=== PATIENT | female | born 1960 | race Caucasian/White ===

== ENCOUNTER 2016-11-29 07:02 | Emergency (ER) | payer OTHER ==
[2016-11-29] MEDS ORDERED: LAMOTRIGINE150 M1 PO (07:08)
[2016-11-29] MEDS ORDERED: TRAZODONE HCL50 M1 PO (07:09)
[2016-11-29] MEDS ORDERED: PAROXETINE HCL20 M1 PO (07:09)
--- NOTE | 2016-11-29 07:20 | ED GENERAL ADULT ---
History of Present Illness General Chief Complaint: General Adult Stated Complaint: BODY ACHES Source: patient, old records Exam Limitations: no limitations Vital Signs & Intake/Output Vital Signs & Intake/Output Vital Signs Date Time Temp Pulse Resp B/P Pulse O2 O2 Flow FiO2 Ox Delivery Rate 11/29 0707 97.6 90 22 131/66 98 Allergies Coded Allergies: NO KNOWN ALLERGIES (11/29/16) Reconcile Medications Lamotrigine 150 MG TABLET 1 TAB PO DAILY ANXIETY (Reported) Paroxetine HCl 20 MG TABLET 1 TAB PO DAILY ANXIETY (Reported) Trazodone HCl 50 MG TABLET 1 TAB PO QPM SLEEP (Reported) Triage Note: PER PT NOT FEELING WELL X 6 WEEKS ? KIDNEY INFECTION. BODY ACHES ONLY VOIDED X 2 IN 2 DAYS NO FEVERS. Triage Nurses Notes Reviewed? yes HPI: Patient presents with chills, malaise, fatigue and myalgias over the past week. Patient states that it started approximately 6 weeks ago when she noticed that she was very tired. Patient states that she had been taking naps every afternoon which is very unusual for her. 3 weeks ago patient noticed that she had a tick in her abdominal wall. Patient is unsure how long the tick In there prior to her pulling it out. Patient states that 3 days later she had what looked like bull's-eye rash around the inside portion of her right ankle. One week ago she developed debilitating myalgias to the point that she states that she did not even want to get out of bed. Patient states that she has been anorexic but has not had any nausea or vomiting. There is no abdominal pain. There is no diarrhea. Patient states that she feels dehydrated that she has had decreased urinary output. Patient states that she only urinated twice yesterday and once this morning. She did not notice any foul odor to the urine. Patient denies any headache or blurry vision. There's been no cough. Patient states that she has a scratchy throat. She says it does not really hurt just feels scratchy when she swallows. She states that she is able to swallow without difficulty. She denies any chest pain or shortness of breath. There is no dyspnea on exertion. There is no neck stiffness. Past History Travel History Traveled to [place] past 21 day No Medical History Any Pertinent Medical History? see below for history Neurological: NONE EENT: NONE Cardiovascular: NONE Respiratory: NONE Gastrointestinal: NONE Hepatic: NONE Renal: NONE Musculoskeletal: fibromyalgia Psychiatric: anxiety Endocrine: NONE Surgical History Surgical History: non-contributory Psychosocial History What is your primary language Emir[place] Tobacco Use: Never used ETOH Use: occasional use Illicit Drug Use: denies illicit drug use Family History Hx Contributory? No Review of Systems Review of Systems Constitutional: Reports: see HPI, chills, malaise. EENTM: Reports: see HPI, throat pain. Respiratory: Reports: no symptoms. Cardiovascular: Reports: no symptoms. GI: Reports: no symptoms. Genitourinary: Reports: see HPI. Musculoskeletal: Reports: see HPI, muscle pain. Skin: Reports: see HPI. Neurological/Psychological: Reports: no symptoms. Hematologic/Endocrine: Reports: no symptoms. Immunologic/Allergic: Reports: no symptoms. All Other Systems: Reviewed and Negative Physical Exam Physical Exam General Appearance: well developed/nourished, alert, awake, anxious, mild distress Head: atraumatic, normal appearance Eyes: Bilateral: PERRL, EOMI. Ears, Nose, Throat: normal pharynx, normal ENT inspection, NO ERYTHEMA, NO TONSILAR EXUDATES OR SWELLING Neck: normal inspection, supple, full range of motion, NO LAD Respiratory: normal breath sounds, chest non-tender, no respiratory distress, lungs clear Cardiovascular: regular rate/rhythm, normal peripheral pulses Gastrointestinal: normal bowel sounds, soft, non-tender, no organomegaly Back: normal inspection, normal range of motion, NO CVA TENDERNESS. NO VETEBRAL TENDERNESS Extremities: normal inspection, normal capillary refill, normal range of motion, no edema Neurologic/Psych: no motor/sensory deficits, awake, alert, oriented x 3, normal gait, normal mood/affect Skin: intact, normal color, warm/dry Lymphatic: no anterior cervical maria isabel Core Measures ACS in differential dx? No CVA/TIA Diagnosis: No Severe Sepsis Present: No Septic Shock Present: No Progress Differential Diagnoses I considered the following diagnoses in my evaluation of the patient: [Tickborne illness, viral syndrome, pyelonephritis, dehydration, electrolyte abnormality] Plan of Care: Orders Procedure Date/time Status URINALYSIS 11/30 719 Active THYROID STIMULATING HORMONE 11/30 719 Complete LYME TITRE 11/30 719 Active COMPREHENSIVE METABOLIC PANEL 11/30 719 Complete CBC WITHOUT DIFFERENTIAL 11/30 719 Complete ANAPLASMA PHAGOCYTOPHILUM DNA 11/30 719 Active Laboratory Tests 11/29/16730: Lyme Disease Antibody Pending 11/29/16730: Anion Gap 12, Estimated GFR > 60, BUN/Creatinine Ratio 20.0, Glucose 148 H, Calcium 9.5, Total Bilirubin 1.0, AST 16, ALT 31, Alkaline Phosphatase 67, Total Protein 6.8, Albumin 4.0, Globulin 2.8, Albumin/Globulin Ratio 1.4, TSH 1.210, A.phagocytophil DNA PCR Pending 11/29/16719: CBC w Diff NO MAN DIFF REQ, RBC 4.29, MCV 90.8, MCH 31.1 H, RDW 14.1, MPV 7.8, Gran % 82.7 H, Lymphocytes % 11.0 L, Monocytes % 5.6, Eosinophils % 0.4, Basophils % 0.3, Absolute Granulocytes 7.5 H, Absolute Lymphocytes 1.0 L, Absolute Monocytes 0.5, Absolute Eosinophils 0, Absolute Basophils 0, PUBS MCHC 34.2 Initial ED EKG: none Comments: Discussed the pros and cons of treating for presumed Lyme disease with the patient. Patient will start treatment with doxycycline twice a day for 3 weeks. Patient advised SUN SENSITIVITY SECONDARY TO DOXYCYCLINE. Departure Departure Disposition: HOME OR SELF CARE Condition: Stable Clinical Impression Primary Impression: Lyme disease Referrals: MJ MONTOYA,FRANK Mccabe (PCP/Family) Additional Instructions: Take the doxycycline as prescribed. Wear sunscreen and like perhaps every time you go outside. Symptoms worsen or for any concerns. Departure Forms: Customer Survey General Discharge Information Prescriptions: Current Visit Scripts Doxycycline Hyclate 1 CAP PO BID #[id number] CAP Critical Care Note Critical Care Note Critical Care Time: non-applicable
[2016-11-29 07:57] LABS: ABSOLUTE BASOPHIL COUNT 0 /CUMM (0.0-0.2); ABSOLUTE EOSINOPHIL COUNT 0 /CUMM (0.0-0.7); ABSOLUTE GRANULOCYTE CT 7.5 /CUMM (1.4-6.5); ABSOLUTE MONOCYTE COUNT 0.5 /CUMM (0.10-0.60); BASOPHIL % 0.3 % (0.0-2.0); EOSINOPHIL % 0.4 % (0-5); GRANULOCYTE % 82.7 % (42.2-75.2); MEAN CORPUSCULAR HGB 31.1 PG (27.0-31.0); MEAN CORPUSCULAR HGB CONC 34.2 G/DL (33.0-37.0); MEAN CORPUSCULAR VOLUME 90.8 FL (81.0-99.0); MEAN PLATELET VOLUME 7.8 FL (7.4-10.4); PLATELET COUNT 245 /CUMM (130-400); RBC DISTRIBUTION WIDTH 14.1 % (11.5-14.5); RED BLOOD CELL CT 4.29 /CUMM (4.20-5.40)
[2016-11-29] MEDS ORDERED: DOXYCYCLINE HY100 M2 PO (09:17)
[2016-11-29 09:19] VITALS: BP 112/62
== END 2016-11-29 09:25 ==
LOC: ERH 07:02
PROVIDERS: Emergency Medicine
DX: A69.20 Lyme disease, unspecified (principal); R53.83 Other fatigue
CPT/HCPCS: 86618; 87798; 96374; 96375; J0131; J1885

== ENCOUNTER 2017-12-22 20:48 | Emergency (ER) | payer OTHER ==
[~2017-12-22] VITALS: Ht 154.9 cm; Wt 88.5 kg
[~2017-12-22 20:48] MED LIST: DOXYCYCLINE HY100 M2 PO; LAMOTRIGINE150 M1 PO; PAROXETINE HCL20 M1 PO; TRAZODONE HCL50 M1 PO
[2017-12-22 20:55] VITALS: BP 130/88
--- NOTE | 2017-12-22 21:24 | ED UPPER/LOWER EXTREMITY COMPL ---
History of Present Illness General Chief Complaint: General Adult Stated Complaint: ?BLOODCLOT IN R LEG Source: patient Exam Limitations: no limitations Vital Signs & Intake/Output Vital Signs & Intake/Output Vital Signs Date Time Temp Pulse Resp B/P B/P Pulse O2 O2 Flow FiO2 Mean Ox Delivery Rate 12/22 2054 98.1 85 16 130/88 97 Room Air Allergies Coded Allergies: NO KNOWN ALLERGIES (11/29/16) Reconcile Medications Cyclobenzaprine HCl 10 MG TABLET 1 TAB PO QPM PRN muscle strain Doxycycline Hyclate 100 MG CAPSULE 1 CAP PO BID LYME DISEASE Lamotrigine 150 MG TABLET 1 TAB PO DAILY ANXIETY (Reported) Meloxicam (Mobic) 15 MG TABLET 1 TAB PO DAILY PRN pain Paroxetine HCl 20 MG TABLET 1 TAB PO DAILY ANXIETY (Reported) Trazodone HCl 50 MG TABLET 1 TAB PO QPM SLEEP (Reported) Triage Note: PT STATES THAT SHE THINKS SHE HAS A CLOT IN THE BACK OF HER RIGHT LEG. PT STATES THAT THIS STARTED 2 MONTHS AGO PT STATES SHE THOUGHT IT WAS A PINCHED NERVE. PT STATES SHE CANT BEND HER KNEE. PT STATES HER LEG THROBES LIKE A TOOTH ACHE. THE PAIN IS A 9/10 Triage Nurses Notes Reviewed? yes Onset: Gradual Duration: week(s): Timing: recent history Severity: severe Severity Numbers: 9 Pain/Injury Location: Right: Leg, Knee. HPI: 57yo female presents to ED complaining of pain in right leg x 2 months. Patient is concerned that she might have a blood clot in her leg. Patient reports pain in his posterior right knee 2 months. Patient also has throbbing pain to posterior thigh and calf described as 9/10, "toothache like pain". Patient states that her symptoms have been gradually worsening since onset 2 months ago. Patient states she can hardly go to work and stand due to her pain. She had no trauma or inciting event prior to onset of symptoms. She denies numbness, tingling, back pain, bruising, swelling, recent travel. (Jane FRANZ,Kimmy Mares) Past History Travel History Traveled to [place] past 21 day No Medical History Any Pertinent Medical History? see below for history Neurological: NONE EENT: NONE Cardiovascular: NONE Respiratory: NONE Gastrointestinal: NONE Hepatic: NONE Renal: NONE Musculoskeletal: fibromyalgia Psychiatric: anxiety Endocrine: NONE Surgical History Surgical History: non-contributory Psychosocial History What is your primary language Japanese Tobacco Use: Never used Family History Hx Contributory? No (Kimmy Montes) Review of Systems Review of Systems Constitutional: Reports: no symptoms. EENTM: Reports: no symptoms. Respiratory: Reports: no symptoms. Cardiovascular: Reports: no symptoms. Gastrointestinal/Abdominal: Reports: no symptoms. Genitourinary: Reports: no symptoms. Musculoskeletal: Reports: see HPI. Skin: Reports: no symptoms. Neurological/Psychological: Reports: no symptoms. Hematologic/Endocrine: Reports: no symptoms. Immunological: Reports: no symptoms. All Other Systems: Reviewed and Negative (Kimmy Montes) Physical Exam Physical Exam General Appearance: well developed/nourished, no apparent distress, alert, awake Head: atraumatic, normal appearance Eyes: Bilateral: normal appearance. Ears, Nose, Throat: hearing grossly normal Neck: normal inspection, supple, full range of motion Cardiovascular/Respiratory: normal peripheral pulses, no respiratory distress Peripheral Pulses: 2+ dorsalis pedis (R) Back: normal inspection, normal range of motion Leg Left: normal range of motion, normal inspection Leg Right: normal range of motion, normal inspection, calf and thigh nontender, no edema Hip Left: normal range of motion, normal inspection Hip Right: normal range of motion, normal inspection Knee Left: normal range of motion, normal inspection Knee Right: normal range of motion, normal inspection, nontender Foot Left: normal inspection, normal range of motion Foot Right: normal inspection, normal range of motion Neurologic/Tendon: normal sensation, normal motor functions, normal tendon functions Skin: intact, normal color, warm/dry (Kimmy Montes) Progress Differential Diagnosis: arterial insufficiency, contusion, DVT, sprain, tendon injury Plan of Care: Orders Procedure Date/time Status US-UNILATERAL VENOUS DOPPLER 12/22 2054 Active Ultrasound is negative for DVT. Patient has no bony deformity or bony tenderness. Possible nerve related injury. Patient has received specialist evaluate orthopedic in the past. She is instructed to follow-up with orthopedics. Patient started on meloxicam and Flexeril for her symptoms. She is able to ambulate without difficulty. The patient is in no acute distress, nontoxic appearing. The patient agrees with the plan of care. Diagnostic Imaging: Viewed by Me: Ultrasound. Discussed w/RAD: Ultrasound. Radiology Impression: PATIENT: MILAN BERNSTEIN PRESENT AGE: 57 PATIENT ACCOUNT NO: [id number] : 62 LOCATION: [facility] ORDERING PHYSICIAN: Kimmy FRANZ SERVICE DATE: 12/22/17 EXAM TYPE: US - US-UNILATERAL VENOUS DOPPLER EXAMINATION: US TRIPLEX LOWER EXTREMITY, RIGHT CLINICAL INFORMATION: Evaluate for right lower extremity swelling deep vein thrombosis. COMPARISON: None TECHNIQUE: Color-flow triplex imaging with spectral analysis and compression Doppler were performed on the lower extremity. FINDINGS: Respiratory variation, normal compression and augmented flow are noted throughout the lower extremity. The visualized common femoral vein, superficial femoral vein, profunda femoral vein, popliteal vein and midcalf peroneal and posterior tibial venous segments show no evidence of deep venous thrombosis. There is no Martinez's cyst. IMPRESSION: Normal triplex scan without evidence of deep venous thrombosis involving the lower extremity. DICTATED BY: Deon Lilly MD DATE/TIME DICTATED:12/22/172130 LUMBER MATERIAL HANDLER:SAGAR DATE/TIME TRANSCRIBED:12/22/172130 CONFIDENTIAL, DO NOT COPY WITHOUT APPROPRIATE AUTHORIZATION. <Electronically signed in Other Vendor System> SIGNED BY: Deon Lilly MD 12/22/172134 (Jane FRANZ,Kimmy Mares) Departure Departure Disposition: HOME OR SELF CARE Condition: Stable Clinical Impression Primary Impression: Leg pain Qualifiers: Laterality: right Qualified Code: M79.604 - Pain in right leg Referrals: Lisa MONTOYA,Yanique Mccabe (PCP/Family) Additional Instructions: Take meloxicam as prescribed as needed for pain. Take Flexeril as prescribed as needed for muscle spasm. Follow up with [facility] regarding your pain. Return here for worsening symptoms or concerns. Please note that there might be incidental findings in your evaluation that are unrelated to the current emergency department visit. Please notify your primary care doctor about this emergency department visit in order to obtain and review all of the testing performed so that these incidental findings can be monitored as needed. If you had an x-ray performed, please understand that some fractures may not be seen on the initial set of x-rays. If your symptoms persist you might need a repeat set of x-rays to check for such a fracture. If you had a laceration evaluated, please understand that foreign bodies such as glass or wood may not be visible to the naked eye or on plain x-rays. If the wound becomes red, swollen, increasingly more painful or if there is any drainage from the wound, please have it reevaluated by a physician for the possibility of a retained foreign body. If you're unable to follow up as outlined in the discharge instructions please return to the emergency department. Thank you for choosing the [facility] Emergency Department for your care. It was a pleasure to serve you today. Departure Forms: Customer Survey General Discharge Information Prescriptions: Current Visit Scripts Meloxicam (Mobic) 1 TAB PO DAILY PRN pain #15 TAB Cyclobenzaprine HCl 1 TAB PO QPM PRN muscle strain #10 TAB (Jane FRANZ,Kimmy Mares) PA/SCULPTURE INSTRUCTOR Co-Sign Statement Statement: ED Attending supervision documentation- I saw and evaluated the patient. I have also reviewed all the pertinent lab results and diagnostic results. I agree with the findings and the plan of care as documented in the PA's/SCULPTURE INSTRUCTOR's documentation. x I have reviewed the ED Record and agree with the PA's/SCULPTURE INSTRUCTOR's documentation. [] Additions or exceptions (if any) to the PAs/SCULPTURE INSTRUCTOR's note and plan are summarized below: [] (Melissa MONTOYA,Deepak)
--- NOTE | 2017-12-22 21:35 | ULTRASOUND REPORT ---
EXAMINATION: US TRIPLEX LOWER EXTREMITY, RIGHT CLINICAL INFORMATION: Evaluate for right lower extremity swelling deep vein thrombosis. COMPARISON: None TECHNIQUE: Color-flow triplex imaging with spectral analysis and compression Doppler were performed on the lower extremity. FINDINGS: Respiratory variation, normal compression and augmented flow are noted throughout the lower extremity. The visualized common femoral vein, superficial femoral vein, profunda femoral vein, popliteal vein and midcalf peroneal and posterior tibial venous segments show no evidence of deep venous thrombosis. There is no Martinez's cyst. IMPRESSION: Normal triplex scan without evidence of deep venous thrombosis involving the lower extremity.
[2017-12-22] MEDS ORDERED: MOBIC15 M1 PO (22:09)
[2017-12-22] MEDS ORDERED: CYCLOBENZAPRINE10 M1 PO (22:09)
== END 2017-12-22 22:13 ==
LOC: ERH 20:48
DX: M79.604 Pain in right leg (principal)